=== PATIENT | female | born 1985 | race Caucasian/White ===

== ENCOUNTER 2016-06-18 09:28 | Emergency (ER) | payer MEDICAID ==
[~2016-06-18] VITALS: Ht 167.6 cm; Wt 68.0 kg
--- NOTE | 2016-06-18 09:28 | NUR ---
Pt bib family c/o lower back pain while putting her socks on, no recent fall reported. Awaiiting order
[2016-06-18] MEDS ORDERED: IBUPROFEN 600 MG TABLET PO ONE ×2 (09:59→10:00)
[2016-06-18] MEDS ORDERED: HYDROCODONE/APAP 5/325MG 1 EACH TABLET ONE (09:59)
[2016-06-18] MEDS ORDERED: HYDROCODONE/APAP 5/325MG 1 EACH TABLET PO ONE (10:00)
--- NOTE | 2016-06-18 10:33 | NUR ---
Patient discharged to home in stable condition. Written and verbal after care instructions given. Patient verbalizes understanding of instruction.
[2016-06-18 10:34] VITALS: BP 113/71
== END 2016-06-18 10:35 | disposition home or self-care (01) ==
LOC: ER 09:30
DX: M54.5 Low back pain (principal); Z88.1 Allergy status to other antibiotic agents; Z88.2 Allergy status to sulfonamides; Z88.8 Allergy status to other drugs, medicaments and biological substances
CPT/HCPCS: A4606; Z7610